=== PATIENT | female | born 2000 | race African-American/Black ===

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

== ENCOUNTER 2021-03-14 15:31 | Emergency (ER) | payer MEDICAID ==
[~2021-03-14] VITALS: Ht 165.1 cm; Wt 82.0 kg
[2021-03-14 15:41] VITALS: BP 121/75
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
--- NOTE | 2021-03-14 16:05 | NUR ---
BREAK RN. SMALL COLLECTED AND SENT TO LAB. PT OUT OF ALL STREET CLOTHES AND PLACED IN HOSPITAL GOWN WITH HOSPITAL SOCKS AND UNDERWEAR. ALL PERSONAL BELONGINGS PLACED IN BAG AND IN LOCKER. MOM AND FRIEND PHONE NUMBERS WRITTEN DOWN FOR PT TO CALL IF NEEDED. YUMIKO MONCADA AT BEDSIDE FOR EVAL. SI PRECAUTIONS IN PLACE AND GARAGE DOORS DOWN. PT PROVIDED WARM BLANKET.
[2021-03-14 16:20] LABS: BASOPHILS % (AUTO) 1 % (0-1); EOSINOPHILS % (AUTO) 1 % (1-7); LYMPHOCYTES % (AUTO) 36 % (22-44); MEAN CORPUSCULAR HEMOGLOBIN 28.2 pg (27.0-34.8); MEAN CORPUSCULAR HGB CONC 34.1 g/dL (32.4-35.8); MEAN PLATELET VOLUME 6.6 fL (7.4-10.4); MONOCYTES % (AUTO) 5 % (2-9); NEUTROPHILS % (AUTO) 58 % (42-75); PLATELET COUNT 378 x10^3/uL (130-400); RED BLOOD COUNT 4.76 x10^6/uL (3.82-5.3); RED CELL DISTRIBUTION WIDTH 13.8 % (9.6-15.2)
[2021-03-14] MEDS ORDERED: LORazepam 1MG TABLET ONE (16:20)
[2021-03-14] MEDS ORDERED: SERTRALINE 50MG TABLET ONE (16:21)
--- NOTE | 2021-03-14 16:24 | NUR ---
REPORT FROM VIR[place] ALEXANDER
[2021-03-14 16:29] LABS: ALBUMIN 4.2 g/dL (3.4-5.0); ANION GAP 7 mmol/L (5-15); CHLORIDE 109 mmol/L (98-107); SALICYLATE LEVEL 2.7 mg/dL (2.8-20.0)
[2021-03-14] MEDS ORDERED: LORazepam 1MG TABLET PO ONE (16:30)
[2021-03-14] MEDS ORDERED: SERTRALINE 50MG TABLET PO SCH (16:30)
[2021-03-14] MEDS ORDERED: HYDROXYZINE PAMOATE 50MG CAP PO PRN (16:30)
[2021-03-14 16:35] LABS: AMPHETAMINE SCREEN, URINE Negative (Negative); BARBITURATE SCREEN, URINE Negative (Negative); BENZODIAZEPINE SCREEN, URINE Negative (Negative); CANNABINOID SCREEN, URINE Positive (Negative); COCAINE SCREEN, URINE Negative (Negative); METHADONE SCREEN, URINE Negative (Negative); OPIATE SCREEN, URINE Negative (Negative)
[2021-03-14 16:41] LABS: ALANINE AMINOTRANSFERASE 15 U/L (12-78); ALKALINE PHOSPHATASE 64 U/L (45-117); BILIRUBIN,TOTAL 0.3 mg/dL (0.2-1.0); CREATININE 0.78 mg/dL (0.55-1.02); TOTAL PROTEIN 8.3 g/dL (6.4-8.2)
--- NOTE | 2021-03-14 17:20 | NUR ---
PACKET FAXED TO [facility], [facility] AND [facility]
--- NOTE | 2021-03-14 18:54 | NUR ---
RECEIEVED REPORT FROM MAYA ALEXANDER. TRANSFER OF CARE.
--- NOTE | 2021-03-14 19:04 | NUR ---
REPORT TO CORNELIO ALEXANDER
--- NOTE | 2021-03-14 19:06 | NUR ---
Patient is resting comfortably in bed. Bed in lowest, rails engaged, call light on lap. A&OX4, BREATHING EVEN AND UNLABORED. SABINE. KURT
--- NOTE | 2021-03-14 19:33 | NUR ---
PT IN ROOM RESTING WATCHIN LAW AND ORDER. PT REFUSED FOOD TRAY EARLIER AND PLACE FOOD TRAY OUTSIDE ROOM AND LET PT KNOW WHEN SHE IS HUNGRY WE CAN GRAB HER FOOD FOR HER. THIS NURSE ASKED PT IF SHE NEEDED ANYTHING AND PT STATED SHE DID NOT. SAME SAFETY PRECAUTIONS STILL IN PLACE. AWAIRTING PT RIDE TO [facility]. KURT. WCCOOPER
--- NOTE | 2021-03-14 20:37 | NUR ---
SHAE AT FACILITY TO HORTICULTURE SUPERVISOR PT. PT AMBULATED TO AMBULANCE WITH STEADY GAIT. NO EMOTIONAL OR BEHAVIORAL OUTBURSTS. NADN PERSONAL BELONGINGS GIVEN TO [facility] STAFF.
== END 2021-03-14 20:41 ==
LOC: ED 17:19
DX: F41.0 Panic disorder [episodic paroxysmal anxiety] (principal); R45.851 Suicidal ideations; F17.200 Nicotine dependence, unspecified, uncomplicated
CPT/HCPCS: 36415; 80053; 80299; 80307; 80320; 80329; 84443; 85025; 99285; G0480